=== PATIENT | female | born 1985 | race Asian ===

== ENCOUNTER 2018-03-12 16:56 | Emergency (ER) | payer OTHER ==
[~2018-03-12] VITALS: Ht 154.9 cm; Wt 50.8 kg
[2018-03-12 17:39] LABS: BASOPHIL % 0.6 % (0-2); PLATELET COUNT 386 x10^3mcL (130-400)
[2018-03-12 17:41] LABS: RED CELL DISTRIBUTION WIDTH 15.9 % (11.5-14.5)
[2018-03-12 17:52] LABS: CALCIUM 8.3 mg/dL (8.5-10.1); CARBON DIOXIDE 27.4 mmol/L (21-32); CHLORIDE SERUM 104 mmol/L (98-107); CREATININE SERUM 0.7 mg/dL (0.6-1.0); GFR1 > 60 mL/min; GLUCOSE SERUM 90 mg/dL (74-106); POTASSIUM SERUM 3.4 mmol/L (3.5-5.1); SODIUM SERUM 139 mmol/L (136-145)
[2018-03-12 17:56] LABS: ALKALINE PHOSPHATASE 38 U/L (46-116); ALT/SGPT 15 U/L (14-59); AST/SGOT 11 U/L (15-37); BILIRUBIN TOTAL 0.2 mg/dL (0.20-1.00); TOTAL PROTEIN, SERUM 6.7 g/dL (6.4-8.2)
[2018-03-12 17:57] LABS: ALBUMIN 3.2 g/dL (3.4-5.0)
[2018-03-12 18:59] VITALS: BP 106/71
== END 2018-03-12 18:59 | disposition home or self-care (01) ==
LOC: ED 16:56
PROVIDERS: Emergency Medicine
DX: R07.89 Other chest pain (principal); E87.6 Hypokalemia
CPT/HCPCS: 36415; Q0092